=== PATIENT | male | born 1945 | race Caucasian/White ===

== ENCOUNTER 2019-05-16 11:57 | Observation (INO) | payer MEDICARE, OTHER ==
[~2019-05-16] VITALS: Ht 154.9 cm; Wt 68.1 kg
[~2019-05-16 11:57] MED LIST: AMLO-147 PO; APIX5TAB PO; ATOR40TA68 PO; FINA5TAB4 PO; LOSA100T3 PO; OMEP20CA16 PO; PRADAXA PO; SIMV80TA18 PO; SOTA80TA PO
--- NOTE | 2019-05-16 14:02 | ERD ---
ER Documentation Chief Complaint Chief Complaint blood in the urine started yesterday HPI This is a 74-year-old male who is on Pradaxa. He is here today because he has had 2 days of hematuria. He has no pain. No vomiting or diarrhea. No fevers. No dysuria or frequency. ROS All systems reviewed and are negative except as per history of present illness. Medications Home Meds Reported Medications Omeprazole* (Omeprazole*) 20 Mg Capsule.dr, 20 MG PO BID 05/02/12 Losartan Potassium* (Cozaar*) 100 Mg Tablet, 100 MG PO HS 05/02/12 Simvastatin* (Simvastatin*) 80 Mg Tablet, 80 MG PO DAILY 05/02/12 Amlodipine Besylate* (Amlodipine Besylate*) 10 Mg Tablet, 10 MG PO HS PRN 05/02/12 [Pradaxa] No Conflict Check, 150 MG PO DAILY 05/02/12 Sotalol Hcl* (Sotalol Hcl*) 80 Mg Tablet, 80 MG PO BID 05/02/12 Finasteride* (Finasteride*) 5 Mg Tablet, 5 MG PO DAILY 05/02/12 Allergies Allergies: Coded Allergies: No Known Drug Allergies (Verified Allergy, 04/24/13) PMhx/Soc History of Surgery: Yes (15 YRS AGO CABG, 40 YRS AGO APPY, R KNEE REPLACEMENT '76) Anesthesia Reaction: No Hx Neurological Disorder: Yes (CVA) Hx Respiratory Disorders: Yes (SLEEP APNEA - 1YR ) Hx Cardiac Disorders: Yes (HTN, CAD 30 YRS ) Hx Psychiatric Problems: No Hx Miscellaneous Medical Probl: No Hx Alcohol Use: Yes (LAST 20 YRS AGO) Hx Substance Use: No Hx Tobacco Use: No (LAST CIGAR 32 YRS AGO) Smoking Status: Former smoker FmHx Family History: No diabetes Physical Exam Vitals Vital Signs Date Temp Pulse Resp B/P (MAP) Pulse Ox O2 O2 Flow FiO2 Time Delivery Rate 05/16/19 98.4 64 20 99/57 (71 97 12:03 Physical Exam Const: No acute distress Head: Atraumatic Eyes: Normal Conjunctiva ENT: Normal External Ears, Nose and Mouth. Neck: Full range of motion. No meningismus. Resp: Clear to auscultation bilaterally Cardio: Regular rate and rhythm, no murmurs Abd: Soft, non tender, non distended. Result Diagram: 05/16/19 1245 05/16/19 1245 Results 24 hrs Laboratory Tests Test 05/16/19 12:45 White Blood Count 6.2 10^3/ul Red Blood Count 4.52 10^6/ul Hemoglobin 9.4 g/dl Hematocrit 32.0 % Mean Corpuscular Volume 70.8 fl Mean Corpuscular Hemoglobin 20.8 pg Mean Corpuscular Hemoglobin Concent 29.4 g/dl Red Cell Distribution Width 19.1 % Platelet Count 277 10^3/UL Mean Platelet Volume 8.7 fl Immature Granulocytes % 0.300 % Neutrophils % 69.8 % Lymphocytes % 17.6 % Monocytes % 10.2 % Eosinophils % 1.5 % Basophils % 0.6 % Nucleated Red Blood Cells % 0.0 /100WBC Immature Granulocytes # 0.020 10^3/ul Neutrophils # 4.3 10^3/ul Lymphocytes # 1.1 10^3/ul Monocytes # 0.6 10^3/ul Eosinophils # 0.1 10^3/ul Basophils # 0.0 10^3/ul Nucleated Red Blood Cells # 0.0 10^3/ul Urine Color DEVEN Urine Clarity CLOUDY Urine pH 5.0 Urine Specific [place] 1.016 Urine Ketones NEGATIVE mg/dL Urine Nitrite NEGATIVE mg/dL Urine Bilirubin NEGATIVE mg/dL Urine Urobilinogen NEGATIVE mg/dL Urine Leukocyte Esterase NEGATIVE [place]/ul Urine Microscopic RBC > 182 /HPF Urine Microscopic WBC 26 /HPF Urine Mucus FEW /HPF Urine Hemoglobin 3+ mg/dL Urine Glucose NEGATIVE mg/dL Urine Total Protein 2+ mg/dl Sodium Level 141 mmol/L Potassium Level 4.6 mmol/L Chloride Level 108 mmol/L Carbon Dioxide Level 23 mmol/L Anion Gap 10 Blood Urea Nitrogen 27 mg/dl Creatinine 1.28 mg/dl Est Glomerular Filtrat Rate mL/min mL/min Glucose Level 148 mg/dl Calcium Level 8.7 mg/dl Total Bilirubin 0.5 mg/dl Direct Bilirubin 0.00 mg/dl Indirect Bilirubin 0.5 mg/dl Aspartate Amino Transf (AST/SGOT) 61 IU/L Alanine Aminotransferase (ALT/SGPT) 74 IU/L Alkaline Phosphatase 58 IU/L Total Protein 7.3 g/dl Albumin 3.9 g/dl Globulin 3.40 g/dl Albumin/Globulin Ratio 1.14 Procedures/MDM 74-year-old who is on anticoagulants is here for hematuria. His urine does show gross hematuria and he does have anemia of 9.4. BUN and creatinine slightly elevated as well. I reviewed this with Dr. Berman and we decided to admit the patient. I spoke to Dr. Washburn who stated he saw this patient today and that this is likely hematuria secondary to his anticoagulants. Reviewed this with Jovana and we still agree patient is to be admitted to monitor his CBC and further evaluation and testing. Departure Diagnosis: Primary Impression: Hematuria Additional Impression: Anemia Condition: JESENIA Benito PA-C May 16, 2019 14:02
[2019-05-16] MEDS ORDERED: ACETAMINOPHEN 650 MG SUPP PR PRN (14:30)
[2019-05-16] MEDS ORDERED: ACETAMINOPHEN 325 MG TAB PO PRN (14:30)
[2019-05-16] MEDS ORDERED: NACL 0.9% 3 ML SYG IV SCH (14:30)
[2019-05-16] MEDS ORDERED: ONDANSETRON 4 MG INJ IV PRN (14:30)
[2019-05-16] MEDS ORDERED: morphine 2 MG INJ IV PRN (14:30)
[2019-05-16] MEDS ORDERED: HYDROCODONE/APAP (5/325) TAB PO PRN (14:30)
--- NOTE | 2019-05-16 16:03 | HP ---
Date/Time of Note Date/Time of Note DATE: 05/16/19 TIME: 15:55 Assessment/Plan VTE Prophylaxis SCD applied (from Nsg): Yes Pharmacological prophylaxis: NA/contraindicated Pharm contraindication: bleeding Lines/Catheters IV Catheter Type (from Nrsg): [place] Assessment/Plan Hospital Course Assessment and plan 1. Hematuria. Monitor H&H. Transfuse blood products as needed Urologist follow 2. Anemia secondary to #1 Monitor trend. Follow-up on iron profile 3. 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 History of A. fib Anticoagulant on hold due to hematuria Monitor on telemetry. Suspect history of BPH Continue on finasteride 5. History of retention Continue on antihypertensives Discussed POC with Dr. Holley Result Diagram: 05/16/19 1245 05/16/19 1245 Results 24hrs Laboratory Tests Test 05/16/19 12:45 White Blood Count 6.2 Red Blood Count 4.52 L Hemoglobin 9.4 L Hematocrit 32.0 L Mean Corpuscular Volume 70.8 L Mean Corpuscular Hemoglobin 20.8 L Mean Corpuscular Hemoglobin Concent 29.4 L Red Cell Distribution Width 19.1 H Platelet Count 277 Mean Platelet Volume 8.7 Immature Granulocytes % 0.300 Neutrophils % 69.8 Lymphocytes % 17.6 Monocytes % 10.2 Eosinophils % 1.5 Basophils % 0.6 Nucleated Red Blood Cells % 0.0 Immature Granulocytes # 0.020 Neutrophils # 4.3 Lymphocytes # 1.1 Monocytes # 0.6 Eosinophils # 0.1 Basophils # 0.0 Nucleated Red Blood Cells # 0.0 Urine Color DEVEN Urine Clarity CLOUDY A Urine pH 5.0 Urine Specific [place] 1.016 Urine Ketones NEGATIVE Urine Nitrite NEGATIVE Urine Bilirubin NEGATIVE Urine Urobilinogen NEGATIVE Urine Leukocyte Esterase NEGATIVE Urine Microscopic RBC > 182 H Urine Microscopic WBC 26 H Urine Mucus FEW A Urine Hemoglobin 3+ H Urine Glucose NEGATIVE Urine Total Protein 2+ H Sodium Level 141 Potassium Level 4.6 Chloride Level 108 Carbon Dioxide Level 23 Anion Gap 10 Blood Urea Nitrogen 27 H Creatinine 1.28 H Est Glomerular Filtrat Rate mL/min Glucose Level 148 Calcium Level 8.7 Total Bilirubin 0.5 Direct Bilirubin 0.00 Indirect Bilirubin 0.5 Aspartate Amino Transf (AST/SGOT) 61 H Alanine Aminotransferase (ALT/SGPT) 74 H Alkaline Phosphatase 58 Total Protein 7.3 Albumin 3.9 Globulin 3.40 H Albumin/Globulin Ratio 1.14 HPI/ROS Admit Date/Time Admit Date/Time Hx of Present Illness This is a 74-year-old male with reported history of coronary artery disease, CABG, CVA, hypertension, hyperlipidemia, who came to the hospital due to reports of hematuria. Patient reports that he started to experience some bleeding with urination 1 day prior to admission. He does take Pradaxa for reported atrial fibrillation he does follow-up with his urologist due to the aformentiond symptoms he was advised to go to the hospital for further evaluation. He did have renal ultrasound showing a 3.9 x 2.5 x 2.4 cm isoechoic lesion in the midpole right kidney suspicious for renal mass. Urinalysis noted with proteinuria. Negative for leukocyte esterase. No fevers noted. He was noted with some renal insufficiency with BUN of 27 creatinine of 1.28. Noted with also some mild transaminitis. Patient at present is alert and oriented. Denies any dysuria chest pain shortness of breath fevers or any other associated symptoms besides hematuria. We will evaluate him for the aformentiond issues. ROS 12 point review of systems obtained entirely negative except as mentioned in history of present illness PMH/Family/Social Past Medical History Medical/surgical history 1. CVA 2. CABG 3. Hypertension 4. Hyperlipidemia 5. Reported A. fib 6. Suspect BPH Medications Current Medications Finasteride (Proscar) 5 mg DAILY PO ; Start 05/17/19 at 09:00; Status UNV Losartan Potassium (Cozaar) 100 mg HS PO ; Start 05/16/19 at 21:00; Status UNV Sotalol HCl (Betapace) 80 mg BID PO ; Start 05/16/19 at 21:00; Status UNV Miscellaneous Information 20 mg BID PO ; Start 05/16/19 at 21:00; Status UNV Miscellaneous Information 80 mg DAILY PO ; Start 05/17/19 at 09:00; Status UNV IV Flush (NS 3 ml) 3 ml PER PROTOCOL IV ; Start 05/16/19 at 14:30; Status UNV Ondansetron HCl (Zofran Inj) 4 mg Q6H PRN IV NAUSEA/VOMITING; Start 05/16/19 at 14:30; Status UNV Acetaminophen (Tylenol Tab) 650 mg Q6H PRN PO .PAIN 1-3 OR TEMP; Start 05/16/19 at 14:30; Status UNV Acetaminophen (Tylenol Supp) 650 mg Q6H PRN [place] .PAIN 1-3 OR TEMP; Start 05/16/19 at 14:30; Status UNV Acetaminophen/ Hydrocodone Bitart ([place] (5/325)) 1 tab Q6H PRN PO .MOD PAIN 4- 6; Start 05/16/19 at 14:30; Status UNV Morphine Sulfate (morphine) 2 mg Q4H PRN IV .SEVERE PAIN 7-10; Start 05/16/19 at 14:30; Status UNV Coded Allergies: No Known Drug Allergies (Verified Allergy, Unknown, 05/16/19) Family History Significant Family History: no pertinent family hx Social History Smoking Status: Former smoker Exam/Review of Systems Vital Signs Vitals Vital Signs Date Temp Pulse Resp B/P (MAP) Pulse Ox O2 O2 Flow FiO2 Time Delivery Rate 05/16/19 98.4 64 20 99/57 (71) 97 12:03 Exam Constitutional: alert, oriented Psych: nl mood/affect Head: normocephalic Neck: supple, non-tender Respiratory: clear to auscultation Cardiovascular: other (Regular rate) Neurological: nl mental status, other (no obvious motor deficit, ) Skin: nl turgor EUNICE PEACE NP May 16, 2019 16:03
--- NOTE | 2019-05-16 17:36 | RADRPT ---
Echocardiogram Report Patient Name: DAIN HANSENPatient ID: [id number] : 1945 (74y 1m)Study Date: 05/16/2019 2:46:57 PM Gender: MAccession #: [id number] Tech: Melony Meyer RDCS Location: ED2 Ref.Physician: EUNICE PEACE Height(Cm): BSA: Weight(Kg): Quality: AdequateOrder Physician: EUNICE PEACE Account #: Procedures: Echocardiographic Report: Transthoracic echocardiogram with complete 2D, M-Mode, and doppler examination. Indications: Cardiac clearance. Measurements: 2D/M Mode Doppler Measurement Value Normal Range Measurement Value Normal Range LVIDd 2D 6.7 [ 4.2 - 5.8 ] cm ALEJANDRO Vmax 1.9 [ 2.0 - 4.0 ] cm2 LVIDs 2D 5.3 [ 2.5 - 4.0 ] cm ALEJANDRO VTI 1.6 [ 2.0 - 4.0 ] cm2 LVPWd 2D 1.0 [ 0.6 - 1.0 ] cm AV Mean Mahesh 1.5 [ 70.0 - 90.0 ] cm/sec IVSd 2D 1.0 [ 0.6 - 1.0 ] cm AV Mean PG 9.0 [ 2.0 - 4.0 ] mmHg IVS/LVPW 2D 1.0 ratio AV Peak Mahesh 2.0 [ 100.0 - 170.0 ] cm/sec AoR Diam 2D 3.3 [ 2.6 - 3.4 ] cm AV Peak PG 16.0 [ 2.0 - 9.0 ] mmHg LA/Ao 2D 1 ratio AV VTI 44.7 cm LA Dimen 2D 4.9 [ 3.0 - 4.0 ] cm LVOT Mean Mahesh 0.8 [ 60.0 - 80.0 ] cm/sec LVOT Area 3.1 cm2 LVOT Mean PG 3.0 [ 1.0 - 3.0 ] mmHg LVOT Peak Mahesh 1.2 [ 70.0 - 110.0 ] cm/sec LVOT Peak PG 6.0 [ 2.0 - 6.0 ] mmHg LVOT VTI 22.5 [ 20.0 - 30.0 ] cm MV E Peak Mahesh 1.2 [ 60.0 - 130.0 ] cm/sec MV Decel Time 92 [ 104 - 258 ] msec Lat E` Mahesh 0.1 [ 10.0 - 15.0 ] cm/sec Med E` Mahesh 0.1 cm/sec TR Peak Mahesh 3.0 [ 100.0 - 280.0 ] cm/sec TR Peak PG 35.0 mmHg RVSP 38.0 [ 10.0 - 36.0 ] mmHg RA Pressure 3.0 mmHg Findings: Left Ventricle: Normal left ventricular wall thickness. Moderate enlargement of left ventricle cavity. Moderate global left ventricular systolic dysfunction. Ejection fraction is visually estimated at 30-35 %. Tissue Doppler/Mitral Doppler indices are consistent with restrictive physiology with markedly elevated left atrial pressure (Stage III-IV diastolic dysfunction). Right Ventricle: Normal right ventricular size. Normal right ventricular systolic function. Linear artifact in right ventricle suggestive of catheter, pacer lead, or ICD lead. Left Atrium: There is moderate enlargement of left atrium. Right Atrium: The right atrium is normal in size. Mitral Valve: Mitral valve leaflets appear mildly thickened. Mild mitral annular calcification. Mild to moderate mitral valve regurgitation. Aortic Valve: Aortic valve Max velocity 2.03 m/sec. Max PG 16.00 mmHg. Mean PG 9.00 mmHg. Aortic sclerosis without significant stenosis. Trace aortic valve regurgitation. Tricuspid Valve: Normal appearance of the tricuspid valve. The estimated Peak RVSP is 38 mmHg. There is mild tricuspid regurgitation. Pulmonic Valve: Normal pulmonic valve appearance. Pericardium: Normal pericardium with no significant pericardial effusion. Aorta: Normal aortic root. IVC: Normal size and normal respiratory collapse consistent with normal right atrial pressure. Conclusions: Normal left ventricular wall thickness. Moderate enlargement of left ventricle cavity. Moderate global left ventricular systolic dysfunction. Ejection fraction is visually estimated at 30-35 %. Tissue Doppler/Mitral Doppler indices are consistent with restrictive physiology with markedly elevated left atrial pressure (Stage III-IV diastolic dysfunction). Mitral valve leaflets appear mildly thickened. Mild mitral annular calcification. Mild to moderate mitral valve regurgitation. Normal appearance of the tricuspid valve. The estimated Peak RVSP is 38 mmHg. There is mild tricuspid regurgitation. Normal pericardium with no significant pericardial effusion. Electronically Signed By: Art Cross 2019-05-16 17:34:48 PDT
[2019-05-16 20:20] VITALS: BP 133/78; PULSE 63; RESP 18
[2019-05-16 20:35] VITALS: Ht 154.9 cm; Wt 68.1 kg
[2019-05-16] MEDS: SOTALOL 80 MG TAB PO SCH (22:58)
[2019-05-16] MEDS: LOSARTAN 50 MG TAB PO SCH (22:59)
[2019-05-17 02:00] VITALS: BP 101/62; PULSE 70; RESP 18
[2019-05-17] MEDS: PANTOPRAZOLE (EC) 40 MG TAB PO SCH (06:01)
[2019-05-17 08:24] VITALS: BP 132/72; PULSE 75; RESP 18
[2019-05-17] MEDS: FINASTERIDE 5 MG TAB PO SCH (08:56)
[2019-05-17] MEDS: ATORVASTATIN 40 MG TAB PO SCH (08:56)
[2019-05-17] MEDS: SOTALOL 80 MG TAB PO SCH ×2 (08:56→22:36)
[2019-05-17] MEDS ORDERED: IOHEXOL 300MG/ML 150 ML BTL ONE (09:04)
[2019-05-17] MEDS ORDERED: SOD CHLORIDE 0.9% 100 ML ONE (09:04)
--- NOTE | 2019-05-17 11:54 | PN ---
Date/Time of Note Date/Time of Note DATE: 05/17/19 TIME: 11:49 Assessment/Plan VTE Prophylaxis Risk score (from [facility] [place])>0 risk: 6 SCD applied (from [facility] [place]): Yes Pharmacological prophylaxis: NA/contraindicated Pharm contraindication: bleeding Lines/Catheters IV C[facility]ter [facility] (from [facility]): Peripheral IV Urinary Cath still in place: No Assessment/Plan Hospital Course Assessment and plan 1. Hematuria. Monitor H&H. Transfuse blood products as needed Urologist following 2. Anemia secondary to #1 Monitor trend. start iron 3. 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 History of A. fib Anticoagulant on hold due to hematuria Suspect history of BPH Continue on finasteride 5. History of hypertension Continue on antihypertensives DISPO/PLAN: f/u imaging of abd. await urology and cardiology eval. H&H stable. monitor in house. Discussed POC with Dr. Holley Result Diagram: 05/17/19 0554 05/17/19 0554 Results 24hrs Laboratory Tests Test 05/16/19 12:45 05/17/19 05:54 White Blood Count 6.2 5.2 Red Blood Count 4.52 L 4.67 L Hemoglobin 9.4 L 9.7 L Hematocrit 32.0 L 33.2 L Mean Corpuscular Volume 70.8 L 71.1 L Mean Corpuscular Hemoglobin 20.8 L 20.8 L Mean Corpuscular Hemoglobin Concent 29.4 L 29.2 L Red Cell Distribution Width 19.1 H 19.3 H Platelet Count 277 275 Mean Platelet Volume 8.7 9.0 Immature Granulocytes % 0.300 0.200 Neutrophils % 69.8 58.5 Lymphocytes % 17.6 25.4 Monocytes % 10.2 11.6 H Eosinophils % 1.5 3.1 Basophils % 0.6 1.2 Nucleated Red Blood Cells % 0.0 0.0 Immature Granulocytes # 0.020 0.010 Neutrophils # 4.3 3.0 Lymphocytes # 1.1 1.3 Monocytes # 0.6 0.6 Eosinophils # 0.1 0.2 Basophils # 0.0 0.1 Nucleated Red Blood Cells # 0.0 0.0 Urine Color DEVEN Urine Clarity CLOUDY A Urine pH 5.0 Urine Specific [place] 1.016 Urine Ketones NEGATIVE Urine Nitrite NEGATIVE Urine Bilirubin NEGATIVE Urine Urobilinogen NEGATIVE Urine Leukocyte Esterase NEGATIVE Urine Microscopic RBC > 182 H Urine Microscopic WBC 26 H Urine Mucus FEW A Urine Hemoglobin 3+ H Urine Glucose NEGATIVE Urine Total Protein 2+ H Sodium Level 141 141 Potassium Level 4.6 3.9 Chloride Level 108 107 Carbon Dioxide Level 23 25 Anion Gap 10 9 Blood Urea Nitrogen 27 H 27 H Creatinine 1.28 H 1.18 Est Glomerular Filtrat Rate mL/min Glucose Level 148 110 Calcium Level 8.7 8.7 Total Bilirubin 0.5 0.6 Direct Bilirubin 0.00 0.00 Indirect Bilirubin 0.5 0.6 Aspartate Amino Transf (AST/SGOT) 61 H 54 H Alanine Aminotransferase (ALT/SGPT) 74 H 75 H Alkaline Phosphatase 58 62 Total Protein 7.3 7.1 Albumin 3.9 3.8 Globulin 3.40 H 3.30 H Albumin/Globulin Ratio 1.14 1.15 Hemoglobin A1c 6.2 H Phosphorus Level 4.2 Magnesium Level 2.2 Iron Level 12 L Total Iron Binding Capacity 458 H Percent Iron Saturation 3 L Triglycerides Level 88 Cholesterol Level 126 LDL Cholesterol, Calculated 76 HDL Cholesterol 32 Cholesterol/HDL Ratio 3.9 Thyroid Stimulating Hormone (TSH) 1.430 Free Thyroxine Index 4.44 H Thyroxine (T4) 9.6 Triiodothyronine (T3) Uptake 46.3 H Subjective 24 Hr Interval Summary Free Text/Dictation no further reports of hematuria. denies any pain Exam/Review of Systems Exam Vitals Vital Signs Date Temp Pulse Resp B/P (MAP) Pulse Ox O2 O2 Flow FiO2 Time Delivery Rate 05/17/19 97.4 75 18 132/72 98 08:24 (92) 05/16/19 Room Air 19:16 Intake and Output 05/16/19 05/16/19 05/17/19 1515:00 23:00 07:00 OutputOutput Total 400 ml BalanceBalance -400 ml Exam Constitutional: alert, oriented Psych: nl mood/affect Head: normocephalic Neck: supple, non-tender Respiratory: clear to auscultation Cardiovascular: other (Regular rate) Neurological: nl mental status, other (no obvious motor deficit, ) Skin: nl turgor Results Results 24hrs Laboratory Tests Test 05/16/19 12:45 05/17/19 05:54 White Blood Count 6.2 5.2 Red Blood Count 4.52 L 4.67 L Hemoglobin 9.4 L 9.7 L Hematocrit 32.0 L 33.2 L Mean Corpuscular Volume 70.8 L 71.1 L Mean Corpuscular Hemoglobin 20.8 L 20.8 L Mean Corpuscular Hemoglobin Concent 29.4 L 29.2 L Red Cell Distribution Width 19.1 H 19.3 H Platelet Count 277 275 Mean Platelet Volume 8.7 9.0 Immature Granulocytes % 0.300 0.200 Neutrophils % 69.8 58.5 Lymphocytes % 17.6 25.4 Monocytes % 10.2 11.6 H Eosinophils % 1.5 3.1 Basophils % 0.6 1.2 Nucleated Red Blood Cells % 0.0 0.0 Immature Granulocytes # 0.020 0.010 Neutrophils # 4.3 3.0 Lymphocytes # 1.1 1.3 Monocytes # 0.6 0.6 Eosinophils # 0.1 0.2 Basophils # 0.0 0.1 Nucleated Red Blood Cells # 0.0 0.0 Urine Color DEVEN Urine Clarity CLOUDY A Urine pH 5.0 Urine Specific [place] 1.016 Urine Ketones NEGATIVE Urine Nitrite NEGATIVE Urine Bilirubin NEGATIVE Urine Urobilinogen NEGATIVE Urine Leukocyte Esterase NEGATIVE Urine Microscopic RBC > 182 H Urine Microscopic WBC 26 H Urine Mucus FEW A Urine Hemoglobin 3+ H Urine Glucose NEGATIVE Urine Total Protein 2+ H Sodium Level 141 141 Potassium Level 4.6 3.9 Chloride Level 108 107 Carbon Dioxide Level 23 25 Anion Gap 10 9 Blood Urea Nitrogen 27 H 27 H Creatinine 1.28 H 1.18 Est Glomerular Filtrat Rate mL/min Glucose Level 148 110 Calcium Level 8.7 8.7 Total Bilirubin 0.5 0.6 Direct Bilirubin 0.00 0.00 Indirect Bilirubin 0.5 0.6 Aspartate Amino Transf (AST/SGOT) 61 H 54 H Alanine Aminotransferase (ALT/SGPT) 74 H 75 H Alkaline Phosphatase 58 62 Total Protein 7.3 7.1 Albumin 3.9 3.8 Globulin 3.40 H 3.30 H Albumin/Globulin Ratio 1.14 1.15 Hemoglobin A1c 6.2 H Phosphorus Level 4.2 Magnesium Level 2.2 Iron Level 12 L Total Iron Binding Capacity 458 H Percent Iron Saturation 3 L Triglycerides Level 88 Cholesterol Level 126 LDL Cholesterol, Calculated 76 HDL Cholesterol 32 Cholesterol/HDL Ratio 3.9 Thyroid Stimulating Hormone (TSH) 1.430 Free Thyroxine Index 4.44 H Thyroxine (T4) 9.6 Triiodothyronine (T3) Uptake 46.3 H Medications Medication Current Medications Finasteride (Proscar) 5 mg DAILY PO Last administered on 05/17/19at 08:56; Admin Dose 5 MG; Start 05/17/19 at 09:00 Losartan Potassium (Cozaar) 100 mg HS PO Last administered on 05/16/19at 22:59; Admin Dose 100 MG; Start 05/16/19 at 21:00 Sotalol HCl (Betapace) 80 mg BID PO Last administered on 05/17/19at 08:56; Admin Dose 80 MG; Start 05/16/19 at 21:00 Pantoprazole (Protonix Tab) 40 mg DAILY@06 PO Last administered on 05/17/19at 06:01; Admin Dose 40 MG; Start 05/17/19 at 06:00 Atorvastatin Calcium (Lipitor) 40 mg DAILY PO Last administered on 05/17/19at 08:56; Admin Dose 40 MG; Start 05/17/19 at 09:00 IV Flush (NS 3 ml) 3 ml PER PROTOCOL IV ; Start 05/16/19 at 14:30 Ondansetron HCl (Zofran Inj) 4 mg Q6H PRN IV NAUSEA/VOMITING; Start 05/16/19 at 14:30 Acetaminophen (Tylenol Tab) 650 mg Q6H PRN PO .PAIN 1-3 OR TEMP; Start 05/16/19 at 14:30 Acetaminophen (Tylenol Supp) 650 mg Q6H PRN [place] .PAIN 1-3 OR TEMP; Start 05/16/19 at 14:30 Acetaminophen/ Hydrocodone Bitart ([place] (5/325)) 1 tab Q6H PRN PO .MOD PAIN 4- 6; Start 05/16/19 at 14:30 Morphine Sulfate (morphine) 2 mg Q4H PRN IV .SEVERE PAIN 7-10; Start 05/16/19 at 14:30 EUNICE PEACE NP May 17, 2019 11:54
--- NOTE | 2019-05-17 14:52 | CONS ---
Assessment/Plan Assessment/Plan Hospital Course (Demo Recall) Hematuria, on Pradaxa Atrial fibrillation Cardiomyopathy LVEF 30 to 35% Mitral and tricuspid valve regurgitation History of open heart surgery, likely CABG History of pacemaker/ICD Patient presents with hematuria and is on anticoagulation. Since anticoagulant has been held, hematuria is improving. Patient undergoing urology work-up Would hold off on restarting anticoagulation until okay by our urology colleague No evidence of decompensated congestive heart failure at the current time Continue beta-gabrielle and ARB Consultation Date/Type/Reason Admit Date/Time Type of Consult Cardiology Reason for Consultation Anticoagulation management Date/Time of Note DATE: 05/17/19 TIME: 14:47 Hx of Present Illness This is a 74-year-old male with past medical history of atrial fibrillation, open heart surgery, pacemaker/ICD who presents with hematuria. Symptoms have been going on for the past few days. Denies any chest pain or shortness of breath at rest. He does complain of shortness breath with exertion which has been ongoing for years. Patient was told to come to the emergency room for further evaluation by his urologist. Since his Pradaxa has been held, his hematuria is improving. 12 point review of systems was performed with all pertinent positives and ne gatives mentioned above and all else is negative Past Medical History Atrial fibrillation Medical History: congestive heart failure, coronary artery disease, hypertension Home Meds Reported Medications Omeprazole* (Omeprazole*) 20 Mg Capsule.dr, 20 MG PO BID 05/02/12 Losartan Potassium* (Cozaar*) 100 Mg Tablet, 100 MG PO HS 05/02/12 Simvastatin* (Simvastatin*) 80 Mg Tablet, 80 MG PO DAILY 05/02/12 Amlodipine Besylate* (Amlodipine Besylate*) 10 Mg Tablet, 10 MG PO HS PRN 05/02/12 [Pradaxa] No Conflict Check, 150 MG PO DAILY 05/02/12 Sotalol Hcl* (Sotalol Hcl*) 80 Mg Tablet, 80 MG PO BID 05/02/12 Finasteride* (Finasteride*) 5 Mg Tablet, 5 MG PO DAILY 05/02/12 Medications Current Medications Finasteride (Proscar) 5 mg DAILY PO Last administered on 05/17/19at 08:56; Admin Dose 5 MG; Start 05/17/19 at 09:00 Losartan Potassium (Cozaar) 100 mg HS PO Last administered on 05/16/19at 22:59; Admin Dose 100 MG; Start 05/16/19 at 21:00 Sotalol HCl (Betapace) 80 mg BID PO Last administered on 05/17/19at 08:56; Admin Dose 80 MG; Start 05/16/19 at 21:00 Pantoprazole (Protonix Tab) 40 mg DAILY@06 PO Last administered on 05/17/19at 06:01; Admin Dose 40 MG; Start 05/17/19 at 06:00 Atorvastatin Calcium (Lipitor) 40 mg DAILY PO Last administered on 05/17/19at 08:56; Admin Dose 40 MG; Start 05/17/19 at 09:00 IV Flush (NS 3 ml) 3 ml PER PROTOCOL IV ; Start 05/16/19 at 14:30 Ondansetron HCl (Zofran Inj) 4 mg Q6H PRN IV NAUSEA/VOMITING; Start 05/16/19 at 14:30 Acetaminophen (Tylenol Tab) 650 mg Q6H PRN PO .PAIN 1-3 OR TEMP; Start 05/16/19 at 14:30 Acetaminophen (Tylenol Supp) 650 mg Q6H PRN [place] .PAIN 1-3 OR TEMP; Start 05/16/19 at 14:30 Acetaminophen/ Hydrocodone Bitart ([place] (5/325)) 1 tab Q6H PRN PO .MOD PAIN 4- 6; Start 05/16/19 at 14:30 Morphine Sulfate (morphine) 2 mg Q4H PRN IV .SEVERE PAIN 7-10; Start 05/16/19 at 14:30 Allergies: Coded Allergies: No Known Drug Allergies (Verified Allergy, Unknown, 05/16/19) Past Surgical History Past Surgical Hx: other (Open heart surgery, pacemaker/AICD) Social History Smoking Status: Former smoker Exam/Review of Systems Vital Signs Vitals Vital Signs Date Temp Pulse Resp B/P (MAP) Pulse Ox O2 O2 Flow FiO2 Time Delivery Rate 05/17/19 97.4 75 18 132/72 98 08:24 (92) 05/16/19 Room Air 19:16 Intake and Output 05/16/19 05/16/19 05/17/19 1515:00 23:00 07:00 OutputOutput Total 400 ml BalanceBalance -400 ml Exam Constitutional: alert, oriented (No apparent distress, at bedside) Head: normocephalic Respiratory: other (Coarse breath sounds bilaterally, no wheezing) Cardiovascular: regular rate and rhythm (S1-S2 heard, occasional irregularities) Gastrointestinal: soft, non-tender, bowel sounds Extremities: other (No significant edema) Labs Result Diagram: 05/17/19 0554 05/17/19 0554 Results 24hrs Laboratory Tests Test 05/17/19 05:54 White Blood Count 5.2 Red Blood Count 4.67 L Hemoglobin 9.7 L Hematocrit 33.2 L Mean Corpuscular Volume 71.1 L Mean Corpuscular Hemoglobin 20.8 L Mean Corpuscular Hemoglobin Concent 29.2 L Red Cell Distribution Width 19.3 H Platelet Count 275 Mean Platelet Volume 9.0 Immature Granulocytes % 0.200 Neutrophils % 58.5 Lymphocytes % 25.4 Monocytes % 11.6 H Eosinophils % 3.1 Basophils % 1.2 Nucleated Red Blood Cells % 0.0 Immature Granulocytes # 0.010 Neutrophils # 3.0 Lymphocytes # 1.3 Monocytes # 0.6 Eosinophils # 0.2 Basophils # 0.1 Nucleated Red Blood Cells # 0.0 Sodium Level 141 Potassium Level 3.9 Chloride Level 107 Carbon Dioxide Level 25 Anion Gap 9 Blood Urea Nitrogen 27 H Creatinine 1.18 Est Glomerular Filtrat Rate mL/min Glucose Level 110 Hemoglobin A1c 6.2 H Calcium Level 8.7 Phosphorus Level 4.2 Magnesium Level 2.2 Iron Level 12 L Total Iron Binding Capacity 458 H Percent Iron Saturation 3 L Total Bilirubin 0.6 Direct Bilirubin 0.00 Indirect Bilirubin 0.6 Aspartate Amino Transf (AST/SGOT) 54 H Alanine Aminotransferase (ALT/SGPT) 75 H Alkaline Phosphatase 62 Total Protein 7.1 Albumin 3.8 Globulin 3.30 H Albumin/Globulin Ratio 1.15 Triglycerides Level 88 Cholesterol Level 126 LDL Cholesterol, Calculated 76 HDL Cholesterol 32 Cholesterol/HDL Ratio 3.9 Thyroid Stimulating Hormone (TSH) 1.430 Free Thyroxine Index 4.44 H Thyroxine (T4) 9.6 Triiodothyronine (T3) Uptake 46.3 H Imaging Imaging ECG V paced at 75 bpm, PVCs, baseline appears atrial fibrillation Medications Medications Current Medications Finasteride (Proscar) 5 mg DAILY PO Last administered on 05/17/19at 08:56; Admin Dose 5 MG; Start 05/17/19 at 09:00 Losartan Potassium (Cozaar) 100 mg HS PO Last administered on 05/16/19at 22:59; Admin Dose 100 MG; Start 05/16/19 at 21:00 Sotalol HCl (Betapace) 80 mg BID PO Last administered on 05/17/19at 08:56; Admin Dose 80 MG; Start 05/16/19 at 21:00 Pantoprazole (Protonix Tab) 40 mg DAILY@06 PO Last administered on 05/17/19at 06:01; Admin Dose 40 MG; Start 05/17/19 at 06:00 Atorvastatin Calcium (Lipitor) 40 mg DAILY PO Last administered on 05/17/19at 08:56; Admin Dose 40 MG; Start 05/17/19 at 09:00 IV Flush (NS 3 ml) 3 ml PER PROTOCOL IV ; Start 05/16/19 at 14:30 Ondansetron HCl (Zofran Inj) 4 mg Q6H PRN IV NAUSEA/VOMITING; Start 05/16/19 at 14:30 Acetaminophen (Tylenol Tab) 650 mg Q6H PRN PO .PAIN 1-3 OR TEMP; Start 05/16/19 at 14:30 Acetaminophen (Tylenol Supp) 650 mg Q6H PRN [place] .PAIN 1-3 OR TEMP; Start 05/16/19 at 14:30 Acetaminophen/ Hydrocodone Bitart ([place] (5/325)) 1 tab Q6H PRN PO .MOD PAIN 4- 6; Start 05/16/19 at 14:30 Morphine Sulfate (morphine) 2 mg Q4H PRN IV .SEVERE PAIN 7-10; Start 05/16/19 at 14:30 Solo Malhotra DO May 17, 2019 14:52
[2019-05-17 15:41] VITALS: BP 119/69; PULSE 70; RESP 17
[2019-05-17 20:00] VITALS: BP 98/62; PULSE 76; RESP 18
--- NOTE | 2019-05-17 20:55 | RADRPT ---
Vent Rate: 75 bpm RR Interval: 800 msec CA Interval: 44 msec QRS Duration: 144 msec QT Interval: 473 msec QTC Interval: 529 msec P-R-T Worth: 85 - 74 - -27 degrees Ventricular-paced complexes...other complexes also detected Left bundle branch block...QRSd>120, broad/notched R Electronically Signed By: Solo Malhotra
--- NOTE | 2019-05-17 20:55 | CONS ---
Assessment/Plan Assessment/Plan Hospital Course (Demo Recall) 74-year-old male with past medical history of atrial fibrillation, open heart surgery, pacemaker/ICD came into my office on May 16 complaining of gross hematuria. Patient is known to have a large prostate and has been doing well on medications and has been emptying his bladder reasonably well. Because of his atrial fibrillation he has been on Pradaxa. Patient was sent to the emergency room and was admitted here because of the gross hematuria. Last night he was still having hematuria but today his urine has cleared. His Pradaxa has been held on admission. He underwent CT scan of the abdomen and pelvis and that showed: 1. Bilateral hypodense renal lesions without discernible enhancement, compatible with cysts. No suspicious solid renal lesion is seen. 2. Diverticulosis. 3. 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 4. Small fat-containing right inguinal and umbilical hernias. 5. Heavy aortoiliac atherosclerosis. 6. Severe prostatomegaly. Correlate with free/total PSA. 7. Diffusely increased hepatic attenuation suggesting hemochromatosis. Today he is urine is clear however last night he was still urinating gross bloody urine. Most likely the hematuria is related to his anticoagulation and the patient does have a very large prostate. He may be bleeding from his prostate. He is already on finasteride and he empties his bladder reasonably well. If anticoagulation is to be resumed one has to adjust the dose or change to a different anticoagulant that may not cause him the bleeding. Consultation Date/Type/Reason Admit Date/Time May 16, 2019 Date of Consultation: May 17, 2019 Type of Consult Urology Reason for Consultation Gross hematuria and benign prostatic hypertrophy Requesting Provider: BRAYDEN BELL Date/Time of Note DATE: 05/17/19 TIME: 20:46 Hx of Present Illness 74-year-old male with past medical history of atrial fibrillation, open heart surgery, pacemaker/ICD came into my office on May 16 complaining of gross hematuria. Patient is known to have a large prostate and has been doing well on medications and has been emptying his bladder reasonably well. Because of his atrial fibrillation he has been on Pradaxa. Patient was sent to the emergency room and was admitted here because of the gross hematuria. Last night he was still having hematuria but today his urine has cleared. His Pradaxa has been held on admission. Constitutional: no complaints Eyes: no complaints ENT: no complaints Respiratory: shortness of breath (With activity and that has been going on for a long time.); No wheezing Cardiovascular: No chest pain Gastrointestinal: no complaints; No nausea, No vomiting Genitourinary: dysuria, hematuria; No flank pain Musculoskeletal: no complaints Skin: no complaints Neurologic: no complaints Endocrine: no complaints Past Medical History Medical History: coronary artery disease, high cholesterol, hypertension Home Meds Reported Medications Omeprazole* (Omeprazole*) 20 Mg Capsule.dr, 20 MG PO BID 05/02/12 Losartan Potassium* (Cozaar*) 100 Mg Tablet, 100 MG PO HS 05/02/12 Simvastatin* (Simvastatin*) 80 Mg Tablet, 80 MG PO DAILY 05/02/12 Amlodipine Besylate* (Amlodipine Besylate*) 10 Mg Tablet, 10 MG PO HS PRN 05/02/12 [Pradaxa] No Conflict Check, 150 MG PO DAILY 05/02/12 Sotalol Hcl* (Sotalol Hcl*) 80 Mg Tablet, 80 MG PO BID 05/02/12 Finasteride* (Finasteride*) 5 Mg Tablet, 5 MG PO DAILY 05/02/12 Medications Current Medications Finasteride (Proscar) 5 mg DAILY PO Last administered on 05/17/19at 08:56; Admin Dose 5 MG; Start 05/17/19 at 09:00 Losartan Potassium (Cozaar) 100 mg HS PO Last administered on 05/16/19at 22:59; Admin Dose 100 MG; Start 05/16/19 at 21:00 Sotalol HCl (Betapace) 80 mg BID PO Last administered on 05/17/19at 08:56; Admin Dose 80 MG; Start 05/16/19 at 21:00 Pantoprazole (Protonix Tab) 40 mg DAILY@06 PO Last administered on 05/17/19at 06:01; Admin Dose 40 MG; Start 05/17/19 at 06:00 Atorvastatin Calcium (Lipitor) 40 mg DAILY PO Last administered on 05/17/19at 08:56; Admin Dose 40 MG; Start 05/17/19 at 09:00 IV Flush (NS 3 ml) 3 ml PER PROTOCOL IV ; Start 05/16/19 at 14:30 Ondansetron HCl (Zofran Inj) 4 mg Q6H PRN IV NAUSEA/VOMITING; Start 05/16/19 at 14:30 Acetaminophen (Tylenol Tab) 650 mg Q6H PRN PO .PAIN 1-3 OR TEMP; Start 05/16/19 at 14:30 Acetaminophen (Tylenol Supp) 650 mg Q6H PRN [place] .PAIN 1-3 OR TEMP; Start 05/16/19 at 14:30 Acetaminophen/ Hydrocodone Bitart ([place] (5/325)) 1 tab Q6H PRN PO .MOD PAIN 4- 6; Start 05/16/19 at 14:30 Morphine Sulfate (morphine) 2 mg Q4H PRN IV .SEVERE PAIN 7-10; Start 05/16/19 at 14:30 Allergies: Coded Allergies: No Known Drug Allergies (Verified Allergy, Unknown, 05/16/19) Past Surgical History Past Surgical Hx: other (Open heart surgery, pacemaker/AICD) Social History Alcohol Use: none Smoking Status: Former smoker Exam/Review of Systems Exam Vitals Vital Signs Date Temp Pulse Resp B/P (MAP) Pulse Ox O2 O2 Flow FiO2 Time Delivery Rate 05/17/19 97.5 76 18 98/62 (74) 96 20:00 05/16/19 Room Air 19:16 Intake and Output 05/16/19 05/16/19 05/17/19 1515:00 23:00 07:00 OutputOutput Total 400 ml BalanceBalance -400 ml Constitutional: alert, oriented Psych: no complaints Head: normocephalic Eyes: nl conjunctiva Neck: supple Respiratory: normal air movement; No wheezing Cardiovascular: No jugular venous distention (JVD) Gastrointestinal: soft Genitourinary - Male: nl penis, nl scrotum, other (Rectal exam: Large and soft prostate) Musculoskeletal: nl extremities to inspection Extremities: No calf tenderness Neurological: nl mental status Skin: nl turgor Results Result Diagram: 05/17/19 0554 05/17/19 0554 Results 24hrs Laboratory Tests Test 05/17/19 05:54 White Blood Count 5.2 Red Blood Count 4.67 L Hemoglobin 9.7 L Hematocrit 33.2 L Mean Corpuscular Volume 71.1 L Mean Corpuscular Hemoglobin 20.8 L Mean Corpuscular Hemoglobin Concent 29.2 L Red Cell Distribution Width 19.3 H Platelet Count 275 Mean Platelet Volume 9.0 Immature Granulocytes % 0.200 Neutrophils % 58.5 Lymphocytes % 25.4 Monocytes % 11.6 H Eosinophils % 3.1 Basophils % 1.2 Nucleated Red Blood Cells % 0.0 Immature Granulocytes # 0.010 Neutrophils # 3.0 Lymphocytes # 1.3 Monocytes # 0.6 Eosinophils # 0.2 Basophils # 0.1 Nucleated Red Blood Cells # 0.0 Sodium Level 141 Potassium Level 3.9 Chloride Level 107 Carbon Dioxide Level 25 Anion Gap 9 Blood Urea Nitrogen 27 H Creatinine 1.18 Est Glomerular Filtrat Rate mL/min Glucose Level 110 Hemoglobin A1c 6.2 H Calcium Level 8.7 Phosphorus Level 4.2 Magnesium Level 2.2 Iron Level 12 L Total Iron Binding Capacity 458 H Percent Iron Saturation 3 L Total Bilirubin 0.6 Direct Bilirubin 0.00 Indirect Bilirubin 0.6 Aspartate Amino Transf (AST/SGOT) 54 H Alanine Aminotransferase (ALT/SGPT) 75 H Alkaline Phosphatase 62 Total Protein 7.1 Albumin 3.8 Globulin 3.30 H Albumin/Globulin Ratio 1.15 Triglycerides Level 88 Cholesterol Level 126 LDL Cholesterol, Calculated 76 HDL Cholesterol 32 Cholesterol/HDL Ratio 3.9 Thyroid Stimulating Hormone (TSH) 1.430 Free Thyroxine Index 4.44 H Thyroxine (T4) 9.6 Triiodothyronine (T3) Uptake 46.[address] scan of the abdomen and pelvis: 1. Bilateral hypodense renal lesions without discernible enhancement, compatible with cysts. No suspicious solid renal lesion is seen. 2. Diverticulosis. 3. 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 4. Small fat-containing right inguinal and umbilical hernias. 5. Heavy aortoiliac atherosclerosis. 6. Severe prostatomegaly. Correlate with free/total PSA. 7. Diffusely increased hepatic attenuation suggesting hemochromatosis. Medications Medication Current Medications Finasteride (Proscar) 5 mg DAILY PO Last administered on 05/17/19at 08:56; Admin Dose 5 MG; Start 05/17/19 at 09:00 Losartan Potassium (Cozaar) 100 mg HS PO Last administered on 05/16/19at 22:59; Admin Dose 100 MG; Start 05/16/19 at 21:00 Sotalol HCl (Betapace) 80 mg BID PO Last administered on 05/17/19at 08:56; Admin Dose 80 MG; Start 05/16/19 at 21:00 Pantoprazole (Protonix Tab) 40 mg DAILY@06 PO Last administered on 05/17/19at 0 6:01; Admin Dose 40 MG; Start 05/17/19 at 06:00 Atorvastatin Calcium (Lipitor) 40 mg DAILY PO Last administered on 05/17/19at 08:56; Admin Dose 40 MG; Start 05/17/19 at 09:00 IV Flush (NS 3 ml) 3 ml PER PROTOCOL IV ; Start 05/16/19 at 14:30 Ondansetron HCl (Zofran Inj) 4 mg Q6H PRN IV NAUSEA/VOMITING; Start 05/16/19 at 14:30 Acetaminophen (Tylenol Tab) 650 mg Q6H PRN PO .PAIN 1-3 OR TEMP; Start 05/16/19 at 14:30 Acetaminophen (Tylenol Supp) 650 mg Q6H PRN [place] .PAIN 1-3 OR TEMP; Start 05/16/19 at 14:30 Acetaminophen/ Hydrocodone Bitart ([place] (5/325)) 1 tab Q6H PRN PO .MOD PAIN 4- 6; Start 05/16/19 at 14:30 Morphine Sulfate (morphine) 2 mg Q4H PRN IV .SEVERE PAIN 7-10; Start 05/16/19 at 14:30 JANET KIM MD May 17, 2019 20:55
[2019-05-17] MEDS: LOSARTAN 50 MG TAB PO SCH (22:39)
[2019-05-18 02:00] VITALS: BP 128/70; PULSE 71; RESP 18
[2019-05-18] MEDS: PANTOPRAZOLE (EC) 40 MG TAB PO SCH (05:46)
[2019-05-18 07:35] VITALS: BP 116/60; PULSE 70; RESP 18
[2019-05-18] MEDS: ATORVASTATIN 40 MG TAB PO SCH (08:28)
[2019-05-18] MEDS: FINASTERIDE 5 MG TAB PO SCH (08:28)
[2019-05-18] MEDS: SOTALOL 80 MG TAB PO SCH (08:29)
--- NOTE | 2019-05-18 12:20 | PN ---
Date/Time of Note Date/Time of Note DATE: 05/18/19 TIME: 12:18 Assessment/Plan VTE Prophylaxis Risk score (from Ns)>0 risk: 4 SCD applied (from Ns): Yes SCD contraindicated: other Pharmacological prophylaxis: NA/contraindicated Pharm contraindication: bleeding Lines/Catheters [facility] Peripheral IV Urinary Cath still in place: No Assessment/Plan Hospital Course Assessment and plan 1. Hematuria. Monitor H&H - appears stable Transfuse blood products as needed Urologist following 2. Anemia secondary to #1 Monitor trend. start iron 3. History of CAD/CABG [employer] to follow 4. History of A. fib Anticoagulant on hold due to hematuria Suspect history of BPH Continue on finasteride 5. History of hypertension Continue on antihypertensives DISPO/PLAN: No further reports of hematuria since yesterday afternoon. Follow- up with urology and cardiology. Discharge planning. We will see for possible anticoagulation regimen upon DC. Discussed POC with Dr. Holley Result Diagram: 05/17/19 0554 05/17/19 0554 Subjective 24 Hr Interval Summary Free Text/Dictation Overall appears stable. Reports last hematuria episode was around 1 PM yesterday afternoon Exam/Review of Systems Exam Vitals Vital Signs Date Temp Pulse Resp B/P (MAP) Pulse Ox O2 O2 Flow FiO2 Time Delivery Rate 05/18/19 98.2 70 18 116/60 95 Room Air 07:35 (78) Intake and Output 05/17/19 05/17/19 05/18/19 1515:00 23:00 07:00 IntakeIntake Total 700 ml 480 ml OutputOutput Total 350 ml 250 ml BalanceBalance 350 ml 230 ml Exam Constitutional: alert, oriented Psych: nl mood/affect Head: normocephalic Neck: supple, non-tender Respiratory: clear to auscultation Cardiovascular: other (Regular rate) Neurological: nl mental status, other (no obvious motor deficit, ) Skin: nl turgor Medications Medication Current Medications Finasteride (Proscar) 5 mg DAILY PO Last administered on 05/18/19at 08:28; Admin Dose 5 MG; Start 05/17/19 at 09:00 Losartan Potassium (Cozaar) 100 mg HS PO Last administered on 05/17/19at 22:39; Admin Dose 100 MG; Start 05/16/19 at 21:00 Sotalol HCl (Betapace) 80 mg BID PO Last administered on 05/18/19at 08:29; Admin Dose 80 MG; Start 05/16/19 at 21:00 Pantoprazole (Protonix Tab) 40 mg DAILY@06 PO Last administered on 05/18/19at 05:46; Admin Dose 40 MG; Start 05/17/19 at 06:00 Atorvastatin Calcium (Lipitor) 40 mg DAILY PO Last administered on 05/18/19at 08:28; Admin Dose 40 MG; Start 05/17/19 at 09:00 IV Flush (NS 3 ml) 3 ml PER PROTOCOL IV ; Start 05/16/19 at 14:30 Ondansetron HCl (Zofran Inj) 4 mg Q6H PRN IV NAUSEA/VOMITING; Start 05/16/19 at 14:30 Acetaminophen (Tylenol Tab) 650 mg Q6H PRN PO .PAIN 1-3 OR TEMP; Start 05/16/19 at 14:30 Acetaminophen (Tylenol Supp) 650 mg Q6H PRN [place] .PAIN 1-3 OR TEMP; Start 05/16/19 at 14:30 Acetaminophen/ Hydrocodone Bitart ([place] (5/325)) 1 tab Q6H PRN PO .MOD PAIN 4- 6; Start 05/16/19 at 14:30 Morphine Sulfate (morphine) 2 mg Q4H PRN IV .SEVERE PAIN 7-10; Start 05/16/19 at 14:30 EUNICE PEACE NP May 18, 2019 12:20
--- NOTE | 2019-05-18 13:18 | CONS ---
Assessment/Plan Assessment/Plan Hospital Course (Demo Recall) Hematuria, on Pradaxa Atrial fibrillation Cardiomyopathy LVEF 30 to 35% Mitral and tricuspid valve regurgitation History of open heart surgery, likely CABG History of pacemaker/ICD Patient presents with hematuria and is on anticoagulation. Since anticoagulant has been held, hematuria has resolved Patient with atrial fibrillation, cardia myopathy and history of CVA. Patient would need to be on anticoagulation given his significant risk factors. We could try switching to a different anticoagulant, for example Eliquis, but unsure if this would make a difference. I have reached out to Dr. Washburn to discuss this, awaiting a call back No evidence of decompensated congestive heart failure at the current time Continue beta-gabrielle and ARB Consultation Date/Type/Reason Admit Date/Time May 16, 2019 at 14:11 Initial Consult Date 05/17/19 Type of Consult Cardiology Requesting Provider: BRAYDEN BELL Date/Time of Note DATE: 05/18/19 TIME: 13:15 24 HR Interval Summary Free Text/Dictation No shortness of breath, palpitations. No further hematuria Exam/Review of Systems Vital Signs Vitals Vital Signs Date Temp Pulse Resp B/P (MAP) Pulse Ox O2 O2 Flow FiO2 Time Delivery Rate 05/18/19 98.2 70 18 116/60 95 Room Air 07:35 (78) Intake and Output 05/17/19 05/17/19 05/18/19 1515:00 23:00 07:00 IntakeIntake Total 700 ml 480 ml OutputOutput Total 350 ml 250 ml BalanceBalance 350 ml 230 ml Exam Constitutional: alert, oriented Head: normocephalic Respiratory: other (Coarse breath sounds bilaterally, no wheezing) Cardiovascular: regular rate and rhythm (Occasional irregularities) Gastrointestinal: soft, non-tender, bowel sounds Extremities: other (No significant edema) Labs Result Diagram: 05/18/19 1228 05/17/19 0554 Results 24hrs Laboratory Tests Test 05/18/19 12:28 Hemoglobin 10.2 L Hematocrit 34.8 L Medications Medications Current Medications Finasteride (Proscar) 5 mg DAILY PO Last administered on 05/18/19at 08:28; Admin Dose 5 MG; Start 05/17/19 at 09:00 Losartan Potassium (Cozaar) 100 mg HS PO Last administered on 05/17/19at 22:39; Admin Dose 100 MG; Start 7/31/19 at 21:00 Sotalol HCl (Betapace) 80 mg BID PO Last administered on 05/18/19at 08:29; Admin Dose 80 MG; Start 05/16/19 at 21:00 Pantoprazole (Protonix Tab) 40 mg DAILY@06 PO Last administered on 05/18/19at 05:46; Admin Dose 40 MG; Start 05/17/19 at 06:00 Atorvastatin Calcium (Lipitor) 40 mg DAILY PO Last administered on 05/18/19at 08:28; Admin Dose 40 MG; Start 05/17/19 at 09:00 IV Flush (NS 3 ml) 3 ml PER PROTOCOL IV ; Start 05/16/19 at 14:30 Ondansetron HCl (Zofran Inj) 4 mg Q6H PRN IV NAUSEA/VOMITING; Start 05/16/19 at 14:30 Acetaminophen (Tylenol Tab) 650 mg Q6H PRN PO .PAIN 1-3 OR TEMP; Start 05/16/19 at 14:30 Acetaminophen (Tylenol Supp) 650 mg Q6H PRN [place] .PAIN 1-3 OR TEMP; Start at 14:30 Acetaminophen/ Hydrocodone Bitart ([place] (5/325)) 1 tab Q6H PRN PO .MOD PAIN 4- 6; Start 05/16/19 at 14:30 Morphine Sulfate (morphine) 2 mg Q4H PRN IV .SEVERE PAIN 7-10; Start 05/16/19 at 14:30 Solo Malhotra DO May 18, 2019 13:18
[2019-05-18 14:30] VITALS: BP 101/65; PULSE 83; RESP 16
--- NOTE | 2019-05-18 15:48 | PDOCDIS ---
Discharge Instructions DIAGNOSIS Discharge Diagnosis 1. Hematuria. 2. Anemia secondary to #1 3. History of CAD/CABG 4. History of A. fib 5. History of hypertension CONDITION [id number] Patient Condition: [id number] Stable HOME CARE INSTRUCTIONS: [id number] Diet Instructions: [id number] Low Fat /Cholesterol FOLLOW UP/APPOINTMENTS Follow-up Plan Office Address [facility] [address] [place] [id number] Office Follow up with Dr. Solo Malhotra in one week Office Address [address] [place] [id number] Office Follow up with Dr. Felton Washburn in one week OTHER ORDERS: Other Orders: If you experience any further bleeding in the urine please come back to the ER EUNICE PEACE NP May 18, 2019 15:48
--- NOTE | 2019-05-18 18:23 | CONS ---
Consult Date/Type/Reason Admit Date/Time May 16, 2019 at 14:11 Initial Consult Date 05/17/19 Type of Consultation: Urology Reason for Consultation Gross hematuria Requesting Provider: BRAYDEN BELL Date/Time of Note DATE: 05/18/19 TIME: 18:20 Subjective The patient is feeling better and has been voiding clear urine today. Objective Vitals Vital Signs Date Temp Pulse Resp B/P (MAP) Pulse Ox O2 O2 Flow FiO2 Time Delivery Rate 05/18/19 98.7 83 16 101/65 98 Room Air 14:30 (77) Intake and Output 05/17/19 05/17/19 05/18/19 1515:00 23:00 07:00 IntakeIntake Total 700 ml 480 ml OutputOutput Total 350 ml 250 ml BalanceBalance 350 ml 230 ml Exam The abdomen is soft. There is no abdominal tenderness. The urine is clear. Urine culture showed no growth in 24 hours Results/Medications Result Diagram: 05/18/19 1228 05/17/19 0554 Results 24 hrs Laboratory Tests Test 05/18/19 12:28 Hemoglobin 10.2 L Hematocrit 34.8 L Home Meds Active Scripts Apixaban* (Eliquis*) 5 Mg Tablet, 5 MG PO BID, #60 TAB Prov:EUNICE PEACE JAPANESE PROFESSOR 05/18/19 Atorvastatin* (Atorvastatin*) 40 Mg Tablet, 40 MG PO DAILY, #30 TAB Prov:EUNICE PEACE JAPANESE PROFESSOR 05/18/19 Reported Medications Omeprazole* (Omeprazole*) 20 Mg Capsule.dr, 20 MG PO BID 05/02/12 Losartan Potassium* (Cozaar*) 100 Mg Tablet, 100 MG PO HS 05/02/12 Amlodipine Besylate* (Amlodipine Besylate*) 10 Mg Tablet, 10 MG PO HS PRN 05/02/12 Sotalol Hcl* (Sotalol Hcl*) 80 Mg Tablet, 80 MG PO BID 05/02/12 Finasteride* (Finasteride*) 5 Mg Tablet, 5 MG PO DAILY 05/02/12 Discontinued Reported Medications Simvastatin* (Simvastatin*) 80 Mg Tablet, 80 MG PO DAILY 05/02/12 [Pradaxa] No Conflict Check, 150 MG PO DAILY 05/02/12 Medications Current Medications Finasteride (Proscar) 5 mg DAILY PO Last administered on 05/18/19at 08:28; Admin Dose 5 MG; Start 05/17/19 at 09:00 Losartan Potassium (Cozaar) 100 mg HS PO Last administered on 05/17/19at 22:39; Admin Dose 100 MG; Start 05/16/19 at 21:00 Sotalol HCl (Betapace) 80 mg BID PO Last administered on 05/18/19at 08:29; Admin Dose 80 MG; Start 05/16/19 at 21:00 Pantoprazole (Protonix Tab) 40 mg DAILY@06 PO Last administered on 05/18/19at 05:46; Admin Dose 40 MG; Start 05/17/19 at 06:00 Atorvastatin Calcium (Lipitor) 40 mg DAILY PO Last administered on 05/18/19at 08:28; Admin Dose 40 MG; Start 05/17/19 at 09:00 IV Flush (NS 3 ml) 3 ml PER PROTOCOL IV ; Start 05/16/19 at 14:30 Ondansetron HCl (Zofran Inj) 4 mg Q6H PRN IV NAUSEA/VOMITING; Start 05/16/19 at 14:30 Acetaminophen (Tylenol Tab) 650 mg Q6H PRN PO .PAIN 1-3 OR TEMP; Start 05/16/19 at 14:30 Acetaminophen (Tylenol Supp) 650 mg Q6H PRN MS .PAIN 1-3 OR TEMP; Start at 14:30 Acetaminophen/ Hydrocodone Bitart ([place] (5/325)) 1 tab Q6H PRN PO .MOD PAIN 4- 6; Start 05/16/19 at 14:30 Morphine Sulfate (morphine) 2 mg Q4H PRN IV .SEVERE PAIN 7-10; Start 05/16/19 at 14:30 Assessment/Plan Hospital Course (Demo Recall) 74-year-old male with past medical history of atrial fibrillation, open heart surgery, pacemaker/ICD came into my office on May 16 complaining of gross hematuria. Patient is known to have a large prostate and has been doing well on medications and has been emptying his bladder reasonably well. Because of his atrial fibrillation he has been on Pradaxa. Patient was sent to the emergency room and was admitted here because of the gross hematuria. Last night he was still having hematuria but today his urine has cleared. His Pradaxa has been held on admission. He underwent CT scan of the abdomen and pelvis and that showed: 1. Bilateral hypodense renal lesions without discernible enhancement, compatible with cysts. No suspicious solid renal lesion is seen. 2. Diverticulosis. 3. 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 4. Small fat-containing right inguinal and umbilical hernias. 5. Heavy aortoiliac atherosclerosis. 6. Severe prostatomegaly. Correlate with free/total PSA. 7. Diffusely increased hepatic attenuation suggesting hemochromatosis. The patient has been voiding clear urine today and has no gross hematuria. Discussed his case with the hospitalist and the business performance manager. Patient is comfortably discharged on Eliquis and should he have a bleeding again he will come back to the emergency room at this hospital. JANET KIM MD May 18, 2019 18:23
--- NOTE | 2019-05-24 17:31 | DS ---
Date/Time of Note Date/Time of Note DATE: 05/24/19 TIME: 17:28 Discharge Summary Admission/Discharge Info Admit Date/Time May 16, 2019 at 14:11 Discharge Date/Time May 18, 2019 at 18:39 Discharge Diagnosis 1. Hematuria. 2. Anemia secondary to #1 3. History of CAD/CABG 4. History of A. fib 5. History of hypertension Patient Condition: Stable Hospital Course This is a 74-year-old male with reported history of coronary artery disease, CABG, CVA, hypertension, hyperlipidemia, who came to the hospital due to reports of hematuria. Patient reports that he started to experience some bleeding with urination 1 day prior to admission. He does take Pradaxa for reported atrial fibrillation he does follow-up with his urologist due to the aformentiond symptoms he was advised to go to the hospital for further evaluation. He did have renal ultrasound showing a 3.9 x 2.5 x 2.4 cm isoechoic lesion in the midpole right kidney suspicious for renal mass. Urinalysis noted with proteinuria. Negative for leukocyte esterase. No fevers noted. He was noted with some renal insufficiency with BUN of 27 creatinine of 1.28. Urologist did follow the patient for reported hematuria. Patient was anemic likely secondary to hematuria as well and there was also noted iron deficiency for which patient was provided with iron supplement. Patient was reportedly on anticoagulant for history of atrial fibrillation. Distribution Associate did follow the patient for this as well. We did monitor the patient's H&H and once hematuria did resolve after discussion with care team patient did need anticoagulation. We did switch patient from Pradaxa to apixaban. Patient was advised that further hematuria occurs to come to the hospital for further evaluation. During his course of stay he did improve. He was otherwise optimized medically with his cardiovascular medications for his history of CAD and A. fib. He was also continued on antihypertensives for high blood pressure. The plan of care was discussed with the patient and he verbalized understanding. On the day of discharge patient was in stable condition Discussed POC with Dr. Holley [facility] Active Scripts Apixaban* (Eliquis*) 5 Mg Tablet, 5 MG PO BID, #60 TAB Prov:EUNICE PEACE ALL SOURCE INTELLIGENCE ANALYST 05/18/19 Atorvastatin* (Atorvastatin*) 40 Mg Tablet, 40 MG PO DAILY, #30 TAB Prov:EUNICE PEACE NP 05/18/19 Reported Medications Omeprazole* (Omeprazole*) 20 Mg Capsule.dr, 20 MG PO BID 05/02/12 Losartan Potassium* (Cozaar*) 100 Mg Tablet, 100 MG PO HS 05/02/12 Amlodipine Besylate* (Amlodipine Besylate*) 10 Mg Tablet, 10 MG PO HS PRN 05/02/12 Sotalol Hcl* (Sotalol Hcl*) 80 Mg Tablet, 80 MG PO BID 05/02/12 Finasteride* (Finasteride*) 5 Mg Tablet, 5 MG PO DAILY 05/02/12 Discontinued Reported Medications Simvastatin* (Simvastatin*) 80 Mg Tablet, 80 MG PO DAILY 05/02/12 [Pradaxa] No Conflict Check, 150 MG PO DAILY 05/02/12 Follow-up Plan Office Address [facility] [address] [place] [id number] Office Follow up with Dr. Solo Malhotra in one week Office Address [address] [place] [id number] Office Follow up with Dr. Felton Washburn in one week Primary Care Provider Leon Agudelo MD Time spent on discharge: > 30 minutes EUNICE PEACE NP May 24, 2019 17:31
== END 2019-05-18 18:39 | disposition home or self-care (01) ==
LOC: FTE 11:57 → PP2 14:11
PROVIDERS: ADMIT Hospitalist; ATTEND Hospitalist
DX: R31.9 Hematuria, unspecified (principal); D64.9 Anemia, unspecified; I48.91 Unspecified atrial fibrillation; I10 Essential (primary) hypertension; I25.10 Atherosclerotic heart disease of native coronary artery without angina pectoris; Z95.1 Presence of aortocoronary bypass graft; Z95.810 Presence of automatic (implantable) cardiac defibrillator; Z87.891 Personal history of nicotine dependence; K40.90 Unilateral inguinal hernia, without obstruction or gangrene, not specified as recurrent; K42.9 Umbilical hernia without obstruction or gangrene; G47.30 Sleep apnea, unspecified; I42.9 Cardiomyopathy, unspecified; I34.0 Nonrheumatic mitral (valve) insufficiency; I07.1 Rheumatic tricuspid insufficiency; Z79.01 Long term (current) use of anticoagulants; Z86.73 Personal history of transient ischemic attack (TIA), and cerebral infarction without residual deficits
CPT/HCPCS: 74178; 76775; 80053; 80061; 81001; 83036; 83540; 83735; 84100; 84436; 84443; 84479; 85014; 85018; 85025; 87086; 93005; 93306; 99285; G0378; Q9967